=== PATIENT | male | born 1960 | race Caucasian/White ===

== ENCOUNTER 2017-06-26 21:09 | Emergency (ER) | payer MEDICARE ==
[~2017-06-26] VITALS: Ht 182.9 cm; Wt 104.5 kg
[~2017-06-26 21:09] MED LIST: ASPIRIN 81M81 MG/TA2 PO; ATIVAN2 MG PO; BENZTROPINE ME0.5 MG PO; BP MED; CEPHALEXIN500 M1 PO; DESYREL 100MG100 MG PO; ENALAPRIL10 MG PO; GLUCOPHAGE500 MG/TAB; LITHIUM 30300 MG/CAP PO; LITHIUM CARBON150 MG PO; METFORMIN HCL500 MG PO; METFORMIN500 MG PO; NORCO 325 MG-51 TAB PO; PREDNISONE20 MG PO; PRINZIDE 12.5 M1 TA1 PO; SEROQUEL300 MG PO; ULTRAM 50MG TAB50 MG; ZITHROMAX 250M250 MG PO
[2017-06-26 21:11] VITALS: TEMP 97.8
[2017-06-26] MEDS ORDERED: GLUCOPHAGE850 MG/TAB PO (21:24)
[2017-06-26] MEDS ORDERED: ZESTRIL30 MG PO (21:25)
[2017-06-26] MEDS ORDERED: GLUCOTROL 5M5 MG/TAB PO (21:25)
[2017-06-26 21:53] LABS: BASO % 0.5 % (0.0-2.0); EOS # 0.2 (0.0-0.7); EOS % 2.3 % (0-4.0); GRAN # 5.7 (1.4-6.5); GRAN % 65.8 % (42.2-75.2); HEMATOCRIT 42.8 % (42.0-52.0); LYMPH # 2.2 (1.2-3.4); LYMPH % 25.4 % (20.0-51.0); MEAN CELL VOLUME 91 fl (80.0-100.0); MEAN CORPUSCULAR HEMOGLOBIN 30 pg (27.0-31.0); MEAN CORPUSCULAR HGB CONC 33 g/dl (33.0-37.0); MEAN PLATELET VOLUME 9.7 fl (7.4-10.4); MONO # 0.5 (0.1-0.6); MONO % 5.8 % (1.7-9.3); PLATELET COUNT 125 K/mm3 (130-400); RED BLOOD COUNT 4.71 M/mm3 (4.20-5.60); WHITE BLOOD COUNT 8.7 K/mm3 (4.8-10.8)
[2017-06-26 22:02] LABS: ADJUSTED CALCIUM 9.3 mg/dL (8.4-10.2); ALANINE AMINOTRANSFERASE 31 U/L (21-72); ALKALINE PHOSPHATASE 93 U/L (50-136); ANION GAP 10 mmol/L (7-16); BILIRUBIN,TOTAL 1.3 mg/dL (0.0-1.0); BLOOD UREA NITROGEN 15 mg/dL (9-20); CALCIUM 9.3 mg/dL (8.4-10.2); CARBON DIOXIDE 25 mmol/L (22-30); CHLORIDE 107 mmol/L (98-107); CREATININE, serum 1.06 mg/dL (0.66-1.25); GLUCOSE 107 mg/dL (74-106); LIPASE 50 U/L (23-300); POTASSIUM 3.6 mmol/L (3.4-5.0); SODIUM 142 mmol/L (137-145); TOTAL PROTEIN 6.9 gm/dL (6.4-8.2)
[2017-06-26 22:03] LABS: ALCOHOL(ethanol),MEDICAL < 10 mg/dL
[2017-06-26 22:09] LABS: LITHIUM < 0.2 mmol/L (0.6-1.2)
[2017-06-26 22:14] LABS: TROPONIN-I < 0.012 ng/mL (0.000-0.034)
[2017-06-26 22:44] VITALS: BP 112/70; PULSE 65
== END 2017-06-26 23:02 | disposition home or self-care (01) ==
LOC: COL.ER 21:09
PROVIDERS: Emergency Medicine
DX: M54.9 Dorsalgia, unspecified (principal); I10 Essential (primary) hypertension; F17.210 Nicotine dependence, cigarettes, uncomplicated; J44.9 Chronic obstructive pulmonary disease, unspecified; Z79.84 Long term (current) use of oral hypoglycemic drugs
CPT/HCPCS: J2405

== ENCOUNTER 2017-07-05 09:57 | Emergency (ER) | payer MEDICARE ==
[~2017-07-05] VITALS: Ht 182.9 cm; Wt 109.1 kg
[~2017-07-05 09:57] MED LIST changes: +GLUCOPHAGE850 MG/TAB PO; +GLUCOTROL 5M5 MG/TAB PO; +ZESTRIL30 MG PO
[2017-07-05 10:13] VITALS: BP 99/58; TEMP 98.1
[2017-07-05] MEDS ORDERED: ULTRAM 50MG TAB50 MG PO (11:50)
[2017-07-05 12:09] VITALS: PULSE 76
== END 2017-07-05 12:09 | disposition home or self-care (01) ==
LOC: COL.ER 09:57
DX: S20.211A Contusion of right front wall of thorax, initial encounter (principal); I10 Essential (primary) hypertension; F31.9 Bipolar disorder, unspecified; J44.9 Chronic obstructive pulmonary disease, unspecified; E11.9 Type 2 diabetes mellitus without complications; F17.210 Nicotine dependence, cigarettes, uncomplicated; Z79.84 Long term (current) use of oral hypoglycemic drugs; V19.9XXA Pedal cyclist (driver) (passenger) injured in unspecified traffic accident, initial encounter; Y92.410 Unspecified street and highway as the place of occurrence of the external cause
CPT/HCPCS: A9284

== ENCOUNTER 2017-10-08 01:27 | Emergency (ER) | payer MEDICARE, MEDICAID ==
[~2017-10-08] VITALS: Ht 182.9 cm; Wt 109.1 kg
[~2017-10-08 01:27] MED LIST changes: +ULTRAM 50MG TAB50 MG PO; -ZESTRIL30 MG PO; +ZESTRIL40 MG PO
[2017-10-08 01:29] VITALS: TEMP 97.8
[2017-10-08 01:52] VITALS: BP 147/80; PULSE 77
== END 2017-10-08 02:30 | disposition home or self-care (01) ==
LOC: COL.ER 01:27
DX: S43.402A Unspecified sprain of left shoulder joint, initial encounter (principal); S93.402A Sprain of unspecified ligament of left ankle, initial encounter; E11.9 Type 2 diabetes mellitus without complications; I10 Essential (primary) hypertension; I25.10 Atherosclerotic heart disease of native coronary artery without angina pectoris; J44.9 Chronic obstructive pulmonary disease, unspecified; F99 Mental disorder, not otherwise specified; Z79.84 Long term (current) use of oral hypoglycemic drugs; W07.XXXA Fall from chair, initial encounter; Y92.59 Other trade areas as the place of occurrence of the external cause

== ENCOUNTER 2017-10-15 00:06 | Emergency (ER) | payer MEDICARE, MEDICAID ==
[~2017-10-15] VITALS: Ht 182.9 cm; Wt 109.1 kg
[2017-10-15 00:08] VITALS: BP 130/88; TEMP 97
[2017-10-15] MEDS ORDERED: ASPERCREME1 EACH TP (00:37)
[2017-10-15 01:30] VITALS: PULSE 60
== END 2017-10-15 01:30 | disposition home or self-care (01) ==
LOC: COL.ER 00:06
DX: M19.012 Primary osteoarthritis, left shoulder (principal); G89.29 Other chronic pain; E11.9 Type 2 diabetes mellitus without complications; I10 Essential (primary) hypertension; F17.210 Nicotine dependence, cigarettes, uncomplicated; Z79.84 Long term (current) use of oral hypoglycemic drugs
CPT/HCPCS: J1885

== ENCOUNTER 2017-12-21 03:53 | Emergency (ER) | payer MEDICARE, MEDICAID ==
[~2017-12-21] VITALS: Ht 182.9 cm; Wt 109.1 kg
[~2017-12-21 03:53] MED LIST changes: +ASPERCREME1 EACH TP
[2017-12-21 04:01] VITALS: TEMP 98.1
[2017-12-21 05:37] LABS: BASO # 0.1 (0.0-0.2); BASO % 0.5 % (0.0-2.0); EOS # 0.3 (0.0-0.7); EOS % 2.5 % (0-4.0); GRAN # 8.8 (1.4-6.5); GRAN % 70.1 % (42.2-75.2); HEMOGLOBIN 14.1 g/dl (13.5-18.0); LYMPH # 2.4 (1.2-3.4); LYMPH % 19.3 % (20.0-51.0); MEAN CELL VOLUME 93 fl (80.0-100.0); MEAN CORPUSCULAR HEMOGLOBIN 31 pg (27.0-31.0); MEAN CORPUSCULAR HGB CONC 33 g/dl (33.0-37.0); MEAN PLATELET VOLUME 9.4 fl (7.4-10.4); MONO # 0.9 (0.1-0.6); MONO % 7.3 % (1.7-9.3); PLATELET COUNT 140 K/mm3 (130-400); RED BLOOD COUNT 4.63 M/mm3 (4.20-5.60); REDCELL DISTRIBUTION WIDTH-CV 14.6 % (11.5-14.5)
[2017-12-21 05:50] LABS: ALANINE AMINOTRANSFERASE 31 U/L (21-72); ALKALINE PHOSPHATASE 82 U/L (50-136); ANION GAP 12 mmol/L (7-16); AST,SGOT 14 U/L (15-37); BILIRUBIN,TOTAL 0.5 mg/dL (0.0-1.0); BLOOD UREA NITROGEN 21 mg/dL (9-20); CALCIUM 9.5 mg/dL (8.4-10.2); CARBON DIOXIDE 28 mmol/L (22-30); CHLORIDE 106 mmol/L (98-107); CREATININE, serum 1.23 mg/dL (0.66-1.25); GLUCOSE 115 mg/dL (74-106); POTASSIUM 4.6 mmol/L (3.4-5.0); SODIUM 146 mmol/L (137-145); TOTAL PROTEIN 7.3 gm/dL (6.4-8.2)
[2017-12-21 06:03] LABS: TROPONIN-I < 0.012 ng/mL (0.000-0.034)
[2017-12-21] MEDS ORDERED: PREDNISONE20 MG PO (06:19)
[2017-12-21] MEDS ORDERED: DOXYCYCLINE HY100 MG PO (06:19)
[2017-12-21] MEDS ORDERED: PROAIR HFA0.09 MG/AC IH (06:19)
[2017-12-21 06:42] VITALS: BP 124/82; PULSE 83
== END 2017-12-21 06:50 | disposition home or self-care (01) ==
LOC: COL.ER 03:53
PROVIDERS: Emergency Medicine
DX: J44.1 Chronic obstructive pulmonary disease with (acute) exacerbation (principal); E11.9 Type 2 diabetes mellitus without complications; I10 Essential (primary) hypertension; F17.210 Nicotine dependence, cigarettes, uncomplicated; Z86.59 Personal history of other mental and behavioral disorders; Z79.84 Long term (current) use of oral hypoglycemic drugs
CPT/HCPCS: J7512

== ENCOUNTER 2018-01-13 05:34 | Emergency (ER) | payer MEDICARE, MEDICAID ==
[~2018-01-13] VITALS: Ht 182.9 cm; Wt 116.8 kg
[~2018-01-13 05:34] MED LIST changes: +DOXYCYCLINE HY100 MG PO; +PROAIR HFA0.09 MG/AC IH
[2018-01-13 05:38] VITALS: BP 182/112; PULSE 82; TEMP 97.4
== END 2018-01-13 06:12 | disposition left against medical advice (07) ==
LOC: COL.ER 05:34
DX: G89.29 Other chronic pain (principal); M25.512 Pain in left shoulder; R05 Cough; R06.02 Shortness of breath; E11.9 Type 2 diabetes mellitus without complications; I10 Essential (primary) hypertension; J44.9 Chronic obstructive pulmonary disease, unspecified; F17.210 Nicotine dependence, cigarettes, uncomplicated; Z86.59 Personal history of other mental and behavioral disorders; Z79.52 Long term (current) use of systemic steroids; Z79.84 Long term (current) use of oral hypoglycemic drugs

== ENCOUNTER 2018-01-28 04:58 | Emergency (ER) | payer MEDICARE, MEDICAID ==
[2018-01-28 05:03] VITALS: BP 163/100; PULSE 70; TEMP 97.6
== END 2018-01-28 05:45 | disposition left against medical advice (07) ==
LOC: COL.ER 04:58
DX: F91.8 Other conduct disorders (principal); Z79.52 Long term (current) use of systemic steroids; Z79.84 Long term (current) use of oral hypoglycemic drugs

== ENCOUNTER → 2018-02-18 | Emergency (ER) | payer MEDICARE, MEDICAID | LOC: COL.ER 14:10 | DX: Z72.9 Problem related to lifestyle, unspecified (principal) ==

== ENCOUNTER 2018-05-01 21:05 | Emergency (ER) | payer MEDICARE, MEDICAID ==
[~2018-05-01] VITALS: Ht 182.9 cm; Wt 109.1 kg
[2018-05-01 21:22] VITALS: TEMP 98.7
[2018-05-01 22:00] LABS: BASO # 0.1 (0.0-0.2); BASO % 0.5 % (0.0-2.0); EOS # 0.3 (0.0-0.7); GRAN # 5.8 (1.4-6.5); GRAN % 63.9 % (42.2-75.2); HEMATOCRIT 43.9 % (42.0-52.0); HEMOGLOBIN 14.2 g/dl (13.5-18.0); LYMPH # 2.5 (1.2-3.4); LYMPH % 26.8 % (20.0-51.0); MEAN CELL VOLUME 91 fl (80.0-100.0); MEAN CORPUSCULAR HEMOGLOBIN 30 pg (27.0-31.0); MEAN CORPUSCULAR HGB CONC 32 g/dl (33.0-37.0); MEAN PLATELET VOLUME 9.9 fl (7.4-10.4); MONO # 0.5 (0.1-0.6); MONO % 5.5 % (1.7-9.3); PLATELET COUNT 125 K/mm3 (130-400); RED BLOOD COUNT 4.82 M/mm3 (4.20-5.60); REDCELL DISTRIBUTION WIDTH-CV 14.4 % (11.5-14.5)
[2018-05-01 22:10] LABS: ALANINE AMINOTRANSFERASE 20 U/L (21-72); ALBUMIN 3.8 gm/dL (3.5-5.0); ALKALINE PHOSPHATASE 82 U/L (50-136); ANION GAP 12 mmol/L (7-16); AST,SGOT 21 U/L (15-37); BILIRUBIN,TOTAL 0.5 mg/dL (0.0-1.0); BLOOD UREA NITROGEN 11 mg/dL (9-20); CALCIUM 9.1 mg/dL (8.4-10.2); CARBON DIOXIDE 22 mmol/L (22-30); CHLORIDE 105 mmol/L (98-107); CREATININE, serum 1.08 mg/dL (0.66-1.25); GLUCOSE 230 mg/dL (74-106); POTASSIUM 3.5 mmol/L (3.4-5.0); SODIUM 139 mmol/L (137-145); TOTAL PROTEIN 6.7 gm/dL (6.4-8.2)
[2018-05-01 22:22] LABS: TROPONIN-I < 0.012 ng/mL (0.000-0.034)
[2018-05-01 22:50] VITALS: BP 164/84; PULSE 68
== END 2018-05-01 22:56 | disposition home or self-care (01) ==
LOC: COL.ER 21:05
PROVIDERS: Emergency Medicine
DX: R05 Cough (principal); J44.1 Chronic obstructive pulmonary disease with (acute) exacerbation; M25.572 Pain in left ankle and joints of left foot; G89.29 Other chronic pain; E11.9 Type 2 diabetes mellitus without complications; I10 Essential (primary) hypertension; F17.210 Nicotine dependence, cigarettes, uncomplicated; Z79.84 Long term (current) use of oral hypoglycemic drugs

== ENCOUNTER 2018-07-08 04:57 | Emergency (ER) | payer MEDICARE, MEDICAID ==
[~2018-07-08] VITALS: Ht 182.9 cm; Wt 100.0 kg
[2018-07-08 05:05] VITALS: BP 139/88; TEMP 99.1
[2018-07-08 05:29] LABS: BASO # 0.1 (0.0-0.2); BASO % 0.5 % (0.0-2.0); EOS # 0.3 (0.0-0.7); EOS % 2.1 % (0-4.0); GRAN # 9.4 (1.4-6.5); GRAN % 77.1 % (42.2-75.2); HEMATOCRIT 45.9 % (42.0-52.0); HEMOGLOBIN 14.7 g/dl (13.5-18.0); LYMPH # 1.6 (1.2-3.4); LYMPH % 13.5 % (20.0-51.0); MEAN CELL VOLUME 92 fl (80.0-100.0); MEAN CORPUSCULAR HEMOGLOBIN 30 pg (27.0-31.0); MEAN CORPUSCULAR HGB CONC 32 g/dl (33.0-37.0); MONO # 0.8 (0.1-0.6); MONO % 6.5 % (1.7-9.3); PLATELET COUNT 156 K/mm3 (130-400); RED BLOOD COUNT 4.97 M/mm3 (4.20-5.60); REDCELL DISTRIBUTION WIDTH-CV 13.6 % (11.5-14.5)
[2018-07-08] MEDS ORDERED: SMZ/TMPDS PO (05:36)
[2018-07-08] MEDS ORDERED: PRINIVIL10 MG PO (05:36)
[2018-07-08] MEDS ORDERED: AMARYL 2MG T2 MG/TAB PO (05:37)
[2018-07-08] MEDS ORDERED: GLUCOPHAGE500 MG/TAB PO (05:37)
[2018-07-08 05:40] LABS: ALANINE AMINOTRANSFERASE 20 U/L (21-72); ALBUMIN 3.8 gm/dL (3.5-5.0); ALKALINE PHOSPHATASE 103 U/L (50-136); ANION GAP 4 mmol/L (7-16); AST,SGOT 12 U/L (15-37); BILIRUBIN,TOTAL 0.3 mg/dL (0.0-1.0); BLOOD UREA NITROGEN 15 mg/dL (9-20); CALCIUM 9.3 mg/dL (8.4-10.2); CARBON DIOXIDE 30 mmol/L (22-30); CHLORIDE 108 mmol/L (98-107); CREATININE, serum 1.05 mg/dL (0.66-1.25); GLUCOSE 158 mg/dL (74-106); POTASSIUM 4.4 mmol/L (3.4-5.0); SODIUM 142 mmol/L (137-145); TOTAL PROTEIN 6.9 gm/dL (6.4-8.2)
[2018-07-08 05:51] LABS: CREATINE KINASE 24 U/L (55-170)
[2018-07-08 05:52] LABS: TROPONIN-I < 0.012 ng/mL (0.000-0.034)
[2018-07-08] MEDS ORDERED: DOXYCYCLINE HY100 MG PO (06:31)
[2018-07-08 07:04] VITALS: PULSE 70
== END 2018-07-08 07:06 | disposition home or self-care (01) ==
LOC: COL.ER 04:57
PROVIDERS: Emergency Medicine
DX: J40 Bronchitis, not specified as acute or chronic (principal); M25.50 Pain in unspecified joint; M79.10 Myalgia, unspecified site; J44.9 Chronic obstructive pulmonary disease, unspecified; F31.9 Bipolar disorder, unspecified; E11.9 Type 2 diabetes mellitus without complications; I10 Essential (primary) hypertension; F17.210 Nicotine dependence, cigarettes, uncomplicated; Z79.84 Long term (current) use of oral hypoglycemic drugs
CPT/HCPCS: J1885

== ENCOUNTER 2019-01-03 00:05 | Emergency (ER) | payer MEDICARE, MEDICAID ==
[~2019-01-03] VITALS: Ht 185.4 cm; Wt 109.1 kg
[~2019-01-03 00:05] MED LIST changes: +AMARYL 2MG T2 MG/TAB PO; +GLUCOPHAGE500 MG/TAB PO; +PRINIVIL10 MG PO; +SMZ/TMPDS PO
[2019-01-03 00:07] VITALS: PULSE 74; TEMP 98.1
== END 2019-01-03 00:18 | disposition left against medical advice (07) ==
LOC: COL.ER 00:05
DX: S99.911A Unspecified injury of right ankle, initial encounter (principal); X58.XXXA Exposure to other specified factors, initial encounter

== ENCOUNTER 2021-07-14 23:02 | Emergency (ER) | payer MEDICARE, MEDICAID ==
[~2021-07-14] VITALS: Ht 182.9 cm; Wt 90.9 kg
[2021-07-14 23:04] VITALS: TEMP 98
[2021-07-14] MEDS ORDERED: XARELTO20 MG PO (23:22)
[2021-07-15 01:11] VITALS: BP 162/81; PULSE 70
== END 2021-07-15 01:30 | disposition home or self-care (01) ==
LOC: COL.ER 23:02
DX: S20.211A Contusion of right front wall of thorax, initial encounter (principal); S99.911A Unspecified injury of right ankle, initial encounter; E11.9 Type 2 diabetes mellitus without complications; I10 Essential (primary) hypertension; J44.9 Chronic obstructive pulmonary disease, unspecified; F31.9 Bipolar disorder, unspecified; Z79.84 Long term (current) use of oral hypoglycemic drugs; F17.210 Nicotine dependence, cigarettes, uncomplicated; Z79.899 Other long term (current) drug therapy; V13.4XXA Pedal cycle driver injured in collision with car, pick-up truck or van in traffic accident, initial encounter
CPT/HCPCS: J1885; L4386

== ENCOUNTER 2021-07-24 01:31 | Emergency (ER) | payer MEDICARE, MEDICAID ==
[~2021-07-24] VITALS: Ht 177.8 cm; Wt 104.5 kg
[~2021-07-24 01:31] MED LIST changes: +XARELTO20 MG PO
[2021-07-24 02:27] LABS: TRICYCLIC ANTIDEPRESS URINE NEGATIVE
[2021-07-24 02:41] LABS: BASO # 0.1 K/mm3 (0.0-0.2); BASO % 0.6 % (0.0-2.0); EOS # 0.1 K/mm3 (0.0-0.7); EOS % 1.6 % (0-4.0); GRAN # 5.9 K/mm3 (1.4-6.5); GRAN % 69.7 % (42.2-75.2); HEMOGLOBIN 13.9 g/dl (13.5-18.0); LYMPH # 1.8 K/mm3 (1.2-3.4); LYMPH % 20.6 % (20.0-51.0); MEAN CELL VOLUME 88 fl (80.0-100.0); MEAN CORPUSCULAR HEMOGLOBIN 29 pg (27.0-31.0); MEAN CORPUSCULAR HGB CONC 33 g/dl (33.0-37.0); MONO # 0.6 K/mm3 (0.1-0.6); MONO % 7.1 % (1.7-9.3); PLATELET COUNT 119 K/mm3 (130-400); RED BLOOD COUNT 4.75 M/mm3 (4.20-5.60); REDCELL DISTRIBUTION WIDTH-CV 14.2 % (11.5-14.5)
[2021-07-24 03:02] LABS: ALANINE AMINOTRANSFERASE 22 U/L (0-55); ALBUMIN 3.7 gm/dL (3.4-4.8); ALKALINE PHOSPHATASE 95 U/L (40-150); ANION GAP 9 mmol/L (7-16); AST,SGOT 20 U/L (5-34); BILIRUBIN,TOTAL 0.5 mg/dL (0.2-1.2); BLOOD UREA NITROGEN 17 mg/dL (8-26); CALCIUM 9.6 mg/dL (8.4-10.2); CARBON DIOXIDE 24 mmol/L (23-31); CHLORIDE 108 mmol/L (98-107); CREATININE, serum 1.29 mg/dL (0.72-1.25); GLUCOSE 199 mg/dL (70-99); POTASSIUM 3.5 mmol/L (3.5-4.5); SODIUM 141 mmol/L (136-145); TOTAL PROTEIN 6.5 gm/dL (6.2-8.1)
[2021-07-24 03:03] LABS: ALCOHOL(ethanol),MEDICAL < 10 mg/dL (0-10)
[2021-07-26 15:05] LABS: COLLECTION METHOD CLEAN CATCH
[2021-07-26 15:13] LABS: PH 6 (5-8); SQUAMOUS EPITHELIAL None Seen /hpf (0-10); URINE APPEARANCE Clear (CLEAR/HAZY); URINE BACTERIA None Seen (NONE SEEN); URINE BILIRUBIN Negative (NEGATIVE); URINE BLOOD Negative (NEGATIVE); URINE COLOR Colorless (YELLOW); URINE GLUCOSE Negative (NEGATIVE); URINE KETONE Negative (NEGATIVE); URINE LEUKOCYTE ESTERASE Negative (NEGATIVE); URINE NITRATE Negative (NEGATIVE); URINE PROTEIN(semi-quant) Negative (NEGATIVE); URINE RBC 0-2 /hpf (0-2); URINE UROBILINOGEN Negative (NEGATIVE)
[2021-07-28 08:33] VITALS: TEMP 97.4
[2021-07-29 05:35] VITALS: BP 125/85
[2021-07-29 13:23] VITALS: PULSE 72
== END 2021-07-29 13:23 ==
LOC: COL.ER 01:31
PROVIDERS: Family Medicine; Personal Emergency Response Attendant
DX: F32.A Depression, unspecified (principal); I10 Essential (primary) hypertension; E11.9 Type 2 diabetes mellitus without complications; J44.9 Chronic obstructive pulmonary disease, unspecified; F17.200 Nicotine dependence, unspecified, uncomplicated; Z20.822 Contact with and (suspected) exposure to COVID-19; Z79.84 Long term (current) use of oral hypoglycemic drugs; Z79.899 Other long term (current) drug therapy
CPT/HCPCS: J1200; J1630; J2060; J7030

== ENCOUNTER 2023-09-16 12:11 | Emergency (ER) | payer OTHER ==
[~2023-09-16] VITALS: Wt 77.3 kg
[~2023-09-16 12:11] MED LIST changes: +MEDROL 4MG DOSPA4 MG PO; +PEPCID 20MG TAB20 MG PO
[2023-09-16 12:12] VITALS: TEMP 97.6
[2023-09-16] MEDS ORDERED: Lidocaine 2% Viscous 15 ML UNIT DOSE MM ONE (13:00)
[2023-09-16 13:05] VITALS: BP 160/90; PULSE 92
== END 2023-09-16 13:06 | disposition home or self-care (01) ==
LOC: COL.ER 12:11
DX: R09.89 Other specified symptoms and signs involving the circulatory and respiratory systems (principal); Z87.891 Personal history of nicotine dependence